=== PATIENT | male | born 1950 | race Caucasian/White ===

== ENCOUNTER 2018-09-06 10:56 | Emergency (ER) | payer MEDICARE, BC, SELFPAY ==
[2018-09-06 11:32] VITALS: BP 156/75; PULSE 51; RESP 16; TEMP 36.7; O2SAT 97
--- NOTE | 2018-09-06 12:15 | DI.COMBO_ITS ---
SYMPTOM/DIAGNOSIS: LEG PAIN, SWELLING, BRUISE LEFT LEG: Two views. No bone or joint abnormality is identified. The soft tissues are unremarkable. IMPRESSION: Negative examination. LEFT LOWER EXTREMITY ULTRASOUND: The deep veins of the left lower extremity show normal compression, augmentation and color flow. No evidence of a deep venous thrombus is identified. No focal fluid collections are seen. The visualized portions of the greater saphenous vein are patent. IMPRESSION: No evidence of a left lower extremity deep venous thrombus.
--- NOTE | 2018-09-06 13:55 | W.ED.GENAD ---
Discharge Plan Disposition Patient Disposition: HOME Condition: Stable Discharge Details Chief Complaint: Vascular Clinical Impression: Contusion of leg, left Primary Care Provider: Stevne Mejía ED Provider: Nahid Iyer Home Meds and New Rx's Prescriptions: Continue venlafaxine 37.5 MG capsule,extended release 24hr 37.5 mg PO DAILY RF: 0 atorvastatin 20 MG tablet 20 mg PO DAILY RF: 0 aspirin 325 MG tablet 325 mg PO DAILY RF: 0 metoprolol succinate 50 MG tablet extended release 24 hr 12.5 mg PO DAILY RF: 0 acetaminophen [Acetaminophen Extra Strength] 500 MG tablet 1,000 mg PO DAILY PRNRF: 0 lorazepam 0.5 MG tablet 0.5 mg PO DAILY PRNRF: 0 ibuprofen 200 mg Tablet 200 - 600 mg PO PRN PRNRF: 0 Discharge Instructions Instructions: Contusion in Adults (ED) Additional Instructions: Watch for any additional signs of bruising or abnormal bleeding and return immediately if these occur as you may need blood work for further assessment. Otherwise I feel that this is an occult injury and you can continue to use scmv-bqt-[id number] therapy and ice it. If not improving over the next 1-2 weeks feel free to follow-up with your primary care provider for reassessment as needed. Referrals: Steven Mejía MD [Primary Care Provider] - (As needed for reassessment) Discharge Data Discharge Date/Time-TO BE ENTERED AT DEPARTURE: 09/06/18 14:06 Medical Decision Making Patient presenting to the emergency department for chief complaint of left lower leg pain. Patient denies any injury or trauma but noticed approximately 5 days ago that his lower leg was hurting. He attempted to ice it as he initially thought this was musculoskeletal but symptoms have significantly worsened and he also started noticing some distal bruising to the area. Physical exam does show some distal posterior calf tenderness along with tenderness to palpation of the midshaft distal tibia with some swelling and ecchymosis and also some distal ecchymotic skin changes to the ankle. Otherwise patient is ambulatory, weightbearing, no other abnormalities noted. I feel that this is highly suspicious of occult injury with contusion given posterior calf tenderness and tenderness to bony prominence plan to check ultrasound for rule out of DVT and x-ray for evaluation of occult fracture. Patient denies need for any pain medication at this time. Review of ultrasound and plain film imaging is negative. Patient discharged with diagnosis of contusion and encouraged to continue to use ice and bhal-egk-nwlflgm pain medication as needed and to return for any new or worsening symptoms. After discussion of diagnosis and plan of care patient has no further needs, questions, or concerns and states clear understanding to return to the emergency department for any worsening symptoms HPI General Mode of arrival: ambulatory. Date/Time Provider Initiated Documentation: 09/06/18 11:09. Limitations to Documentation: no limitations. Information obtained by: patient and RN notes reviewed. History of Present Illness 67 year old M presents to the emergency department with the chief complaint of Left leg pain, described as moderate, with intensity rated at 6. Quality is described as aching, and is localized to the left and lower extremity. Patient reports no radiation. Patient started experiencing this day(s) (5) and it has been constant. No relieving factors improve symptom(s), Movement worsens symptoms . Patient notes no other symptoms.. Patient did receive the following treatments prior to arrival, NSAID and cold therapy Related Data Home Medications Medication Instructions Recorded Confirmed acetaminophen [Acetaminophen Extra 1,000 mg PO DAILY PRN 09/26/17 09/06/18 Strength] aspirin 325 mg PO DAILY 09/26/17 09/06/18 atorvastatin 20 mg PO DAILY 09/26/17 09/06/18 lorazepam 0.5 mg PO DAILY PRN 09/26/17 09/06/18 metoprolol succinate 12.5 mg PO DAILY 09/26/17 09/06/18 venlafaxine 37.5 mg PO DAILY 09/26/17 09/06/18 ibuprofen 200 - 600 mg PO PRN PRN 09/06/18 09/06/18 Allergies Allergy/AdvReac Type Severity Reaction Status Date / Time codeine Allergy Unverified 09/06/18 11:34 Penicillins Allergy Unverified 09/06/18 11:34 General Stated Complaint: Vascular KEIKO: 3 Review of Systems Constitutional Denies body ache(s), Denies chills and Denies fever(s) Cardiovascular Denies chest pain, Reports syncope and Denies dyspnea Respiratory Denies cough, Denies hemoptysis and Denies dyspnea Gastrointestinal Denies melena, Denies hematochezia and Denies change in stool character Integumentary/Breasts Denies rash and Denies unusual bruising Neurologic Denies confusion, Reports syncope and Denies sensory deficit Psychiatric Denies confusion Hematologic/Lymphatic Denies easy bleeding and Denies easy bruising PFSH Social History Smoking/Tobacco Use Status: Former Tobacco Use Exam Const General: cooperative, healthy appearing and no acute distress Orientation: alert, awake and oriented x3 Resp Effort & Inspection: normal respiratory effort and able to speak in complete sentences Cardio Rate: regular rate Rhythm: regular rhythm Extrem General: full ROM, normal capillary refill and normal exam except as noted Left lower extremity: lower leg Details: tenderness Location: of the posterior calf and of the midshaft tibia, localized swelling Location: of the distal lower leg and ecchymosis (Distal medial lower leg and ankle); no palpable cords, no pitting edema, no crepitus, no foreign bodies, no deformity and no unusual warmth Course Vital Signs Temperature 36.7 C 09/06/18 11:32 Pulse 51 L 09/06/18 11:32 Respiratory Rate 16 09/06/18 11:32 Blood Pressure 156/75 H 09/06/18 11:32 Pulse Oximetry 97 09/06/18 11:32 Temperature 36.7 C 09/06/18 11:32 Temperature Source Skin 09/06/18 11:32 Pulse 51 L 09/06/18 11:32 Respiratory Rate 16 09/06/18 11:32 Respiratory Effort Non-Labored 09/06/18 11:50 Blood Pressure 156/75 H 09/06/18 11:32 Blood Pressure Position Sitting 09/06/18 11:32 Pulse Oximetry 97 09/06/18 11:32 Oxygen Delivery Method Room Air 09/06/18 11:32 Oxygen Flow Rate 0 09/06/18 11:32 Pain Level 6 09/06/18 11:50
--- NOTE | 2018-09-06 13:58 | ED.GENADUL_ITS ---
Discharge Plan Disposition Patient Disposition: HOME Condition: Stable Discharge Details Chief Complaint: Vascular Clinical Impression: Contusion of leg, left Primary Care Provider: Steven Mejía ED Provider: Nahid Iyer Home Meds and New Rx's Prescriptions: Continue venlafaxine 37.5 MG capsule,extended release 24hr 37.5 mg PO DAILY RF: 0 atorvastatin 20 MG tablet 20 mg PO DAILY RF: 0 aspirin 325 MG tablet 325 mg PO DAILY RF: 0 metoprolol succinate 50 MG tablet extended release 24 hr 12.5 mg PO DAILY RF: 0 acetaminophen [Acetaminophen Extra Strength] 500 MG tablet 1,000 mg PO DAILY PRNRF: 0 lorazepam 0.5 MG tablet 0.5 mg PO DAILY PRNRF: 0 ibuprofen 200 mg Tablet 200 - 600 mg PO PRN PRNRF: 0 Discharge Instructions Instructions: Contusion in Adults (ED) Additional Instructions: Watch for any additional signs of bruising or abnormal bleeding and return immediately if these occur as you may need blood work for further assessment. Otherwise I feel that this is an occult injury and you can continue to use over- the-counter therapy and ice it. If not improving over the next 1-2 weeks feel free to follow-up with your primary care provider for reassessment as needed. Referrals: Steven Mejía MD [Primary Care Provider] - (As needed for reassessment) Discharge Data Discharge Date/Time-TO BE ENTERED AT DEPARTURE: 09/06/18 14:06 Medical Decision Making Patient presenting to the emergency department for chief complaint of left lower leg pain. Patient denies any injury or trauma but noticed approximately 5 days ago that his lower leg was hurting. He attempted to ice it as he initially thought this was musculoskeletal but symptoms have significantly worsened and he also started noticing some distal bruising to the area. Physical exam does show some distal posterior calf tenderness along with tenderness to palpation of the midshaft distal tibia with some swelling and ecchymosis and also some distal ecchymotic skin changes to the ankle. Otherwise patient is ambulatory, weightbearing, no other abnormalities noted. I feel that this is highly suspicious of occult injury with contusion given posterior calf tenderness and tenderness to bony prominence plan to check ultrasound for rule out of DVT and x-ray for evaluation of occult fracture. Patient denies need for any pain medication at this time. Review of ultrasound and plain film imaging is negative. Patient discharged with diagnosis of contusion and encouraged to continue to use ice and over-the- counter pain medication as needed and to return for any new or worsening symptoms. After discussion of diagnosis and plan of care patient has no further needs, questions, or concerns and states clear understanding to return to the emergency department for any worsening symptoms HPI General Mode of arrival: ambulatory . Date/Time Provider Initiated Documentation: 09/06/18 11:09 . Limitations to Documentation: no limitations . Information obtained by: patient and RN notes reviewed . History of Present Illness 67 year old M presents to the emergency department with the chief complaint of Left leg pain, described as moderate, with intensity rated at 6. Quality is described as aching, and is localized to the left and lower extremity. Patient reports no radiation. Patient started experiencing this day(s) (5) and it has been constant. No relieving factors improve symptom(s), Movement worsens symptoms . Patient notes no other symptoms.. Patient did receive the following treatments prior to arrival, NSAID and cold therapy Related Data Home Medications Medication Instructions Recorded Confirmed acetaminophen [Acetaminophen Extra 1,000 mg PO DAILY PRN 09/26/17 09/06/18 Strength] aspirin 325 mg PO DAILY 09/26/17 09/06/18 atorvastatin 20 mg PO DAILY 09/26/17 09/06/18 lorazepam 0.5 mg PO DAILY PRN 09/26/17 09/06/18 metoprolol succinate 12.5 mg PO DAILY 09/26/17 09/06/18 venlafaxine 37.5 mg PO DAILY 09/26/17 09/06/18 ibuprofen 200 - 600 mg PO PRN PRN 09/06/18 09/06/18 Allergies Allergy/AdvReac Type Severity Reaction Status Date / Time codeine Allergy Unverified 09/06/18 11:34 Penicillins Allergy Unverified 09/06/18 11:34 General Stated Complaint: Vascular KEIKO: 3 Review of Systems Constitutional Denies body ache(s), Denies chills and Denies fever(s) Cardiovascular Denies chest pain, Reports syncope and Denies dyspnea Respiratory Denies cough, Denies hemoptysis and Denies dyspnea Gastrointestinal Denies melena, Denies hematochezia and Denies change in stool character Integumentary/Breasts Denies rash and Denies unusual bruising Neurologic Denies confusion, Reports syncope and Denies sensory deficit Psychiatric Denies confusion Hematologic/Lymphatic Denies easy bleeding and Denies easy bruising PFSH Social History Smoking/Tobacco Use Status: Former Tobacco Use Exam Const General: cooperative, healthy appearing and no acute distress Orientation: alert, awake and oriented x3 Resp Effort & Inspection: normal respiratory effort and able to speak in complete sentences Cardio Rate: regular rate Rhythm: regular rhythm Extrem General: full ROM, normal capillary refill and normal exam except as noted Left lower extremity: lower leg Details: tenderness Location: of the posterior calf and of the midshaft tibia, localized swelling Location: of the distal lower leg and ecchymosis (Distal medial lower leg and ankle); no palpable cords , no pitting edema, no crepitus, no foreign bodies, no deformity and no unusual warmth Course Vital Signs Temperature 36.7 C 09/06/18 11:32 Pulse 51 L 09/06/18 11:32 Respiratory Rate 16 09/06/18 11:32 Blood Pressure 156/75 H 09/06/18 11:32 Pulse Oximetry 97 09/06/18 11:32 Temperature 36.7 C 09/06/18 11:32 Temperature Source Skin 09/06/18 11:32 Pulse 51 L 09/06/18 11:32 Respiratory Rate 16 09/06/18 11:32 Respiratory Effort Non-Labored 09/06/18 11:50 Blood Pressure 156/75 H 09/06/18 11:32 Blood Pressure Position Sitting 09/06/18 11:32 Pulse Oximetry 97 09/06/18 11:32 Oxygen Delivery Method Room Air 09/06/18 11:32 Oxygen Flow Rate 0 09/06/18 11:32 Pain Level 6 09/06/18 11:50
[2018-09-06 14:02] VITALS: BP 145/80; PULSE 54; RESP 16; O2SAT 97
[2018-09-06 14:06] VITALS: BP 145/80; PULSE 54; RESP 16; O2SAT 97
== END 2018-09-06 14:06 | disposition home or self-care (01) ==
PROVIDERS: Emergency Provider Nurse Practitioner Family; PCP Internal Medicine
DX: S80.12XA Contusion of left lower leg, initial encounter (principal); X58.XXXA Exposure to other specified factors, initial encounter
CPT/HCPCS: 99284; 73590; 93971; 99283

== ENCOUNTER 2020-05-04 15:13 | Outpatient (REF) | payer MEDICARE, BC, SELFPAY ==
[2020-05-04 21:40] LABS: Mean Corp. HGB Concentration 32.6 g/dL (32.0-36.0); Mean Corpuscular Hemoglobin 29.8 pg (27.0-33.0); Mean Corpuscular Volume 91.5 fL (80-95); Mean Platelet Volume 11.8 fL (8.0-11.0); Platelet Count 169 x1000/uL (130-400); RBC Distribution Width 14.2 % (11.8-14.1); White Blood Cell Count 6.36 k/cumm (4.4-10.8)
[2020-05-04 22:11] LABS: Anion Gap 8.5 mmol/L (3-11); BUN 16 mg/dL (7-18); CO2 26.5 mmol/L (21.0-32.0); CREATININE 0.82 mg/dL (0.70-1.30); Calculated LDL 108 mg/dL (<100); Chloride 106 mmol/L (98-107); Cholesterol 170 mg/dL (<200); Glucose 96 mg/dL (74-106); HDL Cholesterol 39 mg/dL (40-60); Potassium 4.8 mmol/L (3.5-5.1); Sodium 141 mmol/L (136-145); Triglyceride 115 mg/dL (<150)
[2020-05-04 22:56] LABS: Hemoglobin A1C 5.7 % (3.8-5.6)
== END 2020-05-04 15:33 ==
LOC: NCHCN 15:13
PROVIDERS: PCP Internal Medicine; Visit Provider Internal Medicine
DX: R73.09 Other abnormal glucose (principal); E66.9 Obesity, unspecified
CPT/HCPCS: 80048; 80061; 85027; 83036

== ENCOUNTER 2021-04-16 21:34 | Emergency (ER) | payer MEDICARE, BC, SELFPAY ==
[2021-04-16] VITALS (10 sets, daily range): BP systolic 121–155; BP diastolic 58–69; PULSE 67–84; RESP 16–20; TEMP 37.1; O2SAT 94–95
--- NOTE | 2021-04-16 22:00 | DI.CT_ITS ---
Exam(s) CT CAROTID NECK CTA EXAM: CT CAROTID NECK CTA CLINICAL HISTORY: hx artery reconstruction , left lateral neck pain,. TECHNIQUE: Imaging Protocol: Axial CT angiography was performed with multi-slice acquisition and mu lti-planar and/or 3D reconstructions. CONTRAST MATERIAL: Intravenous: Omnipaque 350 Contrast volume:structured data in ml COMPARISON: CT CHEST FOR PULMONARY EMBOLUS from 09/26/2017 FINDINGS: CTA NECK W: AORTIC ARCH ANATOMY: Conventional Anterior circulation: Both common carotid arteries ascend with normal luminal diameters. There is mild calcified plaque at the level the carotid bifurcations but without significant stenosis at these levels nor in the proximal internal carotid arteries. Both internal carotid arteries exhib it normal diameters in the neck and visualized skull base. Posterior circulation: Both vertebral arteries originated conventional fashion off of the subclavian arteries. There is no significant stenosis in the subclavian arteries proximal to the vertebral artery takeoff points. No obvious stenosis at the origin of the vertebral arteries off of the subclavian arteries. Both verteb ral arteries ascend with normal luminal diameters (approximately equal). There is no intraluminal th rombus nor dissection of the vertebral arteries evident. Both vertebral arteries contribute to the f ormation of the basilar artery at the skull base. IMPRESSION: 1. Minimal plaque at the carotid bifurcations. No hemodynamically significant stenosis. No dissect ion. 2. Both vertebral arteries are patent. No evidence of dissection. 3. RADIATION DOSE DELIVERED: 371.46mGy.cm Total DLP DATA REPOSITORY: All CT scans at this facility are submitted to the National Radiology Data Registry (NRDR) Dose Index Registry (DIR) with the [employer] ([employer]). RADIATION OPTIMIZATION: All CT scans at this facility use at least one of these dose optimization te chniques: automated exposure control; mA and/or kV adjustment per patient size (includes targeted exa ms where dose is matched to clinical indication); or iterative reconstruction.
[2021-04-16] MEDS: diazePAM 10 MG/2 ML SYR 2.5 MG IVP ×2 (22:33→23:01)
[2021-04-16] MEDS: ACETAMINOPHEN 1,000 MG/100 ML BTL 400 MG IVPB (22:33)
--- NOTE | 2021-04-16 22:36 | ED.GENADUL_ITS ---
Discharge Plan Disposition Patient Disposition: HOME Condition: Stable Discharge Details Clinical Impression: Acute torticollis Primary Care Provider: Steven Mejía ED Provider: Arin Villalpando Home Meds and New Rx's Prescriptions: New diazepam [Valium] 5 mg tablet 5 mg PO BID PRNQty: 7 RF: 0 No Action venlafaxine 37.5 MG capsule,extended release 24hr 37.5 mg PO DAILY RF: 0 atorvastatin 20 MG tablet 20 mg PO DAILY RF: 0 aspirin 325 MG tablet 325 mg PO DAILY RF: 0 acetaminophen [Acetaminophen Extra Strength] 500 MG tablet 1,000 mg PO DAILY PRNRF: 0 lorazepam 0.5 MG tablet 0.5 mg PO DAILY PRNRF: 0 ibuprofen 200 mg Tablet 200 - 600 mg PO PRN PRNRF: 0 losartan 25 mg tablet 25 mg PO DAILY AM RF: 0 Discharge Instructions Instructions: Spasmodic Torticollis (ED) Additional Instructions: Take ibuprofen as needed for discomfort, 400 mg every 8 hours with food You may take Tylenol 650 mg to 1 g every 6 hours as needed for pain, you may take the Valium for pain uncontrolled with Motrin and Tylenol Warm compresses Recheck with your primary care physician on Sunday, light stretching recommended Do not take baclofen and Valium within 8 hours of each other Please return with new or worsening complaints Medical Decision Making Patient will be supplied with a Valium prescription for home He will continue to take ibuprofen and apply warm compresses CTA reviewed without acute abnormality Given low threshold to return with new or worsening complaints Patient feels marked symptomatically improvement He will need recheck with his primary care physician on Sunday instructed return should he have new or worsening complaints, is discharged home in stable condition with stable vitals Differential Diagnosis Differential Diagnosis: Carotid artery dissection, torticollis, angina, meningitis Medical Records Medical records reviewed: Yes I reviewed the patient's medical records. Lab Data Lab results reviewed: Yes I reviewed the patient's lab results. HPI General Date/Time Provider Initiated Documentation: 04/16/21 21:58 . Limitations to Documentation: no limitations . Information obtained by: patient . HPI Narrative: This 70-year-old gentleman with history of carotid and aortic reconstruction, hypertension, hyperlipidemia presents with neck pain which started this morning when patient awoke. He states his neck felt stiff and by the time dinner arrived, he could not turn his head to the left. He states he never had symptoms similar to this in the past. He denies headache, dizziness, fever, chills. He denies any vision change. He denies any strength or sensation changes to extremities. He denies any speech change. Denies chest pain or shortness of breath. Denies any paresthesias to his extremities he otherwise feels well. He took a baclofen and and some ibuprofen without relief in his symptoms. The pain is exacerbated with movement predominantly. If he holds his head straight ahead, he does not have discomfort reportedly. He denies any whiplash injury. Related Data Home Medications Medication Instructions Recorded Confirmed acetaminophen [Acetaminophen Extra 1,000 mg PO DAILY PRN 09/26/17 09/06/18 Strength] aspirin 325 mg PO DAILY 09/26/17 04/16/21 atorvastatin 20 mg PO DAILY 09/26/17 04/16/21 lorazepam 0.5 mg PO DAILY PRN 09/26/17 04/16/21 venlafaxine 37.5 mg PO DAILY 09/26/17 04/16/21 ibuprofen 200 - 600 mg PO PRN PRN 09/06/18 04/16/21 diazepam [Valium] 5 mg PO BID PRN #7 tab 04/16/21 losartan 25 mg PO DAILY AM 04/16/21 04/16/21 Previous Rx's Medication Instructions Recorded diazepam [Valium] 5 mg PO BID PRN #7 tab 04/16/21 Allergies Allergy/AdvReac Type Severity Reaction Status Date / Time codeine Allergy Unverified 09/06/18 11:34 Penicillins Allergy Unverified 09/06/18 11:34 General Stated Complaint: GenMedical KEIKO: 3 Review of Systems Narrative: Review of systems obtained x7 aside from where indicated in [facility] Social History Smoking/Tobacco Use Status: Former Tobacco Use Smoking risk assessment performed?: Yes Drug use: Occasionally Do you feel safe in your relationship?: Yes Exam Const General: cooperative Orientation: alert and oriented x3 Eyes Pupils: PERRL Neck Other: Reproducible tenderness along SCM, no carotid bruit or pulsatile mass, no anterior neck wall tenderness, no midline posterior tenderness, Resp Effort & Inspection: normal respiratory effort Cardio Rate: regular rate Rhythm: regular rhythm Skin Other: No rashes or lesions Neuro General: patient alert and patient oriented x3 Cranial Nerves: CN's II-XI intact bilaterally Cognition: normal cognition Speech: speech normal Motor: strength 5/5 throughout Course Vital Signs Vital signs: Vital Signs Temperature 37.1 C 04/16/21 21:42 Pulse 80 04/16/21 21:42 Respiratory Rate 16 04/16/21 21:42 Blood Pressure 155/69 H 04/16/21 21:42 Pulse Oximetry 95 04/16/21 21:42 Temperature 37.1 C 04/16/21 21:42 Temperature Source Temporal Artery Scan 04/16/21 21:42 Pulse 80 04/16/21 21:42 Respiratory Rate 16 04/16/21 21:42 Respiratory Effort 04/16/21 21:58 Blood Pressure 155/69 H 04/16/21 21:42 Blood Pressure Position Sitting 04/16/21 21:42 Pulse Oximetry 95 04/16/21 21:42 Oxygen Delivery Method Room Air 04/16/21 21:42 Oxygen Flow Rate 0 04/16/21 21:42 Pain Level 10 04/16/21 21:42
[2021-04-16 22:39] LABS: Abs Immature Grans 0.03 10^3/uL (0.0-0.06); Absolute Basophil Count 0.05 10^3/uL (0.0-0.2); Absolute Eosinophil Count 0.37 10^3/uL (0.0-0.7); Absolute Monocyte Count 1.12 10^3/uL (0.1-0.8); Basophils % 0.5; Eosinophils % 3.6; HCT 42.3 % (40.0-50.0); HGB 13.6 g/dL (13.5-17.5); Immature Grans % 0.3; Lymphocytes % 11.6; MCH 29.8 pg (27.0-33.0); MCHC 32.2 % (32.0-36.0); MCV 92.6 fL (80-95); MPV 10.9 fL (8.0-11.0); Monocytes % 10.8; Neutrophils % 73.2; Nucleated RBC 0 %; Platelet Count 205 10^3/uL (130-400); RBC 4.57 10^6/uL (4.36-5.78); RDW 13.8 % (11.8-14.1); RDW-SD 46.6 fL; WBC 10.37 10^3/uL (4.4-10.8)
[2021-04-16 22:47] LABS: Anion Gap 7.3 mmol/L (3-11); BUN 25 mg/dL (7-18); CO2 29.7 mmol/L (21.0-32.0); Calcium 9.1 mg/dL (8.5-10.1); Chloride 106 mmol/L (98-107); Glucose 111 mg/dL (74-106); Sodium 143 mmol/L (136-145)
[2021-04-16] MEDS: Omnipaque 350 MG/ML 100 ML BTL IJ (23:07)
[2021-04-16] MEDS: Normal Saline - Diluent 50 ML VIAL IV (23:08)
--- NOTE | 2021-04-16 23:54 | DI.VRAD_ITS ---
PROCEDURE INFORMATION: Exam: CT Angiography Neck With Contrast Exam date and time: 04/16/2021 10:12 PM Age: 70 years old Clinical indication: Prior surgery; Patient HX: HX artery reconstruction; Left lateral neck pain TECHNIQUE: Imaging protocol: Computed tomography angiography of the neck with contrast. 3D rendering (Not supervised by radiologist): MIP and/or 3D reconstructed images were created by the technologist. Total images: 974 COMPARISON: CT CHEST FOR PULMONARY EMBOLUS 09/26/2017 4:22 PM FINDINGS: Right common carotid artery: No stenosis. No dissection or occlusion. Right internal carotid artery: Minimal calcification in the wall of the right carotid bulb. Mild atherosclerotic stenosis of the cavernous segment of the right ICA. Right external carotid artery: No occlusion or stenosis of the origin. Left common carotid artery: No stenosis. No dissection or occlusion. Left internal carotid artery: Minimal calcification in the wall the left carotid bulb. Mild to moderate atherosclerotic stenosis of the cavernous segment left ICA Left external carotid artery: No occlusion or stenosis of the origin. Right vertebral artery: No stenosis. No dissection or occlusion. Left vertebral artery: No stenosis. No dissection or occlusion. Soft tissues: No significant soft tissue swelling. Bones/joints: No acute fracture. IMPRESSION: No significant stenosis, occlusion or dissection. REFERENCES: NASCET CRITERIA. The degree of internal carotid artery stenosis is based on NASCET criteria. Normal is no stenosis. Mild is less than 50% stenosis. Moderate is 50-69% stenosis. Severe is 70% to 99% stenosis. Total occlusion is no detectable patent lumen. Dictated and Authenticated by: Micah Reardon MD. Ordering:NUNU Hinkle MD
[2021-04-17] VITALS: PULSE 67; RESP 16; O2SAT 95
[2021-04-17 00:01] VITALS: BP 129/45; PULSE 69; PULSE 73; RESP 12; O2SAT 95
[2021-04-17] MEDS: Ketorolac 15 MG/ML VIAL IVP (00:05)
[2021-04-17 00:10] VITALS: PULSE 69; RESP 15; O2SAT 96
[2021-04-17 00:16] VITALS: BP 131/58; PULSE 65; PULSE 69; RESP 17; O2SAT 95
[2021-04-17 00:20] VITALS: PULSE 69; RESP 18; O2SAT 95
--- NOTE | 2021-04-17 09:16 | NUR.NOTE ---
script not escribed. called in rx of valium 5 mg bid prn 7 tablets no refills.via message system at [facility]
== END 2021-04-17 00:40 | disposition home or self-care (01) ==
PROVIDERS: Emergency Provider Physician Assistant; PCP Internal Medicine
DX: M43.6 Torticollis (principal)
CPT/HCPCS: 70498; 80048; 96374; 96375; 99285; 85025; 99283; J0131; J1885; J3360; J3490

== ENCOUNTER 2021-11-16 10:23 | Outpatient (REF) | payer MEDICARE, BC, SELFPAY ==
[2021-11-16 15:43] LABS: Calculated LDL 83 mg/dL (<100); Cholesterol 139 mg/dL (<200); HDL Cholesterol 41 mg/dL (40-60); Triglyceride 78 mg/dL (<150)
[2021-11-16 16:00] LABS: Hemoglobin A1C 5.6 % (<5.7)
== END 2021-11-16 10:24 | disposition home or self-care (01) ==
LOC: NCHCN 10:23
PROVIDERS: PCP Internal Medicine; Visit Provider Internal Medicine
DX: R73.03 Prediabetes (principal); Z13.220 Encounter for screening for lipoid disorders
CPT/HCPCS: 80061; 83036

== ENCOUNTER → 2022-04-07 00:21 | Outpatient (CLI) | payer MEDICARE, BC, SELFPAY ==
--- NOTE | 2022-04-07 09:19 | DI.RAD_ITS ---
Exam(s) XR CERVICAL SPINE COMP 4-5V EXAM: XR CERVICAL SPINE COMP 4-5V CLINICAL HISTORY: RT CERVICAL RADICULOPATHY,M54.12. TECHNIQUE: 2D digital imaging was performed. Eight images were obtained. AP, odontoid, lateral and b ilateral oblique images were obtained. COMPARISON: CT CT CAROTID NECK CTA from 04/16/2021 FINDINGS: The odontoid is intact. The lateral masses are well aligned. There is mild reversal of the normal ce rvical lordosis centered at C5-6. There is disc space narrowing at C5-6 and C6-C7. Endplate osteophy noe RC from C4-5 through C7-T1. Hypertrophic changes of the facets are seen at multiple levels, but most marked at the C2-3 and C3-C4 levels. No acute fracture or subluxation is present. Neural forami nal narrowing is seen bilaterally throughout the cervical spine. The cervical thoracic junction is w ell maintained. The prevertebral soft tissues are unremarkable. Lung apices are clear. Sternal wire s are in place. IMPRESSION: Moderate degenerative changes in the cervical spine. DATA REPOSITORY: RADIATION DOSE DELIVERED:
== END ==
PROVIDERS: PCP Internal Medicine; Visit Provider Internal Medicine
DX: M47.812 Spondylosis without myelopathy or radiculopathy, cervical region (principal)
CPT/HCPCS: 72050

== ENCOUNTER 2022-05-28 11:51 | Emergency (ER) | payer MEDICARE, BC, SELFPAY ==
[2022-05-28 12:26] VITALS: BP 157/67; PULSE 78; RESP 18; TEMP 36.7; O2SAT 96
--- NOTE | 2022-05-28 12:29 | ED.GENADUL_ITS ---
Discharge Plan Disposition Patient Disposition: HOME Condition: Stable Discharge Details Clinical Impression: Acute chemical conjunctivitis of left eye Primary Care Provider: Steven Mejía ED Provider: Alexy Yanez Home Meds and New Rx's Prescriptions: Continued venlafaxine 37.5 MG capsule,extended release 24hr 37.5 mg PO DAILY atorvastatin 20 MG tablet 20 mg PO DAILY aspirin 325 MG tablet 325 mg PO DAILY lorazepam 0.5 MG tablet 0.5 mg PO DAILY PRN ibuprofen 200 mg Tablet 200 - 600 mg PO PRN PRN mirtazapine 15 mg tablet 7.5 tab PO HS Label Comments: TAKE ONE-HALF TABLET BY MOUTH AT BEDTIME FOR 1 WEEK; THEN INCREASE TO ONE TABLET AT BEDTIME metoprolol tartrate 25 mg tablet 25 mg PO DAILY AM No Action acetaminophen [Acetaminophen Extra Strength] 500 MG tablet 1,000 mg PO DAILY PRN Discharge Instructions Instructions: Chemical Eye [facility] (ED) Additional Instructions: Please follow-up with your healthcare management consultant tomorrow. Call them and let them know about injury today and treatment here in the emergency department. Return to the ER immediately for any worsening or new concerning symptoms. Referrals: Steven Mejía MD [Primary Care Provider] - Medical Decision Making 71-year-old male here with left eye pain and inflammation after accidentally exposing it to PVC primer. His left conjunctive is inflamed. Initial pH on arrival 8. I called [facility] discussed ED presentation course. They recommend sterile saline aeration for 15 minutes then routine care. Patient was irrigated with copious sterile saline. pH retested and now 7. Pa tient notes pain resolved. Tetracaine was applied as anesthetic to the eye. Cornea was examined with fluorescein staining under Krause lamp and no corneal injury noted. Usual customary discharge instructions reviewed with the patient. HPI General Mode of arrival: ambulatory . Date/Time Provider Initiated Documentation: 05/28/22 11:56 . Limitations to Documentation: no limitations . Information obtained by: patient . HPI Narrative: 71-year-old male with history of macular degeneration of his left eye, presents with chief complaint of left eye pain. Patient notes he was working at home and accidentally got PVC primer in his eye. He immediately experienced discomfort which has persisted since this occurred just prior to arrival. Pain is moderate to severe. No modifiers. No associated visual changes. No other injury. Related Data Home Medications Medication Instructions Recorded Confirmed acetaminophen 500 mg tablet 1,000 mg PO DAILY PRN 09/26/17 09/06/18 (Acetaminophen Extra Strength) aspirin 325 mg tablet 325 mg PO DAILY 09/26/17 05/28/22 atorvastatin 20 mg tablet 20 mg PO DAILY 09/26/17 05/28/22 lorazepam 0.5 mg tablet 0.5 mg PO DAILY PRN 09/26/17 05/28/22 venlafaxine 37.5 mg 37.5 mg PO DAILY 09/26/17 05/28/22 capsule,extended release 24 hr ibuprofen 200 mg tablet 200 - 600 mg PO PRN PRN 09/06/18 05/28/22 metoprolol tartrate 25 mg tablet 25 mg PO DAILY AM 05/28/22 05/28/22 mirtazapine 15 mg tablet 7.5 tab PO HS 05/28/22 05/28/22 Allergies Allergy/AdvReac Type Severity Reaction Status Date / Time codeine Allergy Unverified 05/28/22 12:13 Penicillins Allergy Unverified 05/28/22 12:13 General Stated Complaint: EyeProblem KEIKO: 2 Review of Systems Eyes Eyes: Reports as per HPI Cardiovascular Cardiovascular: Denies dyspnea Respiratory Respiratory: Denies dyspnea PFSH All Active Problems (Updated 05/28/22 @ 12:49 by Alexy Yanez MD) Acute torticollis (Acute) Acute chemical conjunctivitis of left eye (Acute) Social History Smoking/Tobacco Use Status: Former Tobacco Use Smoking risk assessment performed?: Yes Alcohol Intake: current Alcohol Intake frequency: holidays/special occasions only Drug use: Occasionally Do you feel safe at home: Yes Do you feel safe in your relationship?: Yes Exam Const General: uncomfortable Orientation: alert and awake Eyes Visual Green: normal visual green by confrontation Alignment and Position: alignment normal Periorbital: periorbital findings normal Eyelids: eyelids normal Conjunctivae: conjunctival abnormality left conjunctival injection Pupils: PERRL EOM: EOM intact bilaterally Course Vital Signs Vital signs: Vital Signs Temperature 36.7 C 05/28/22 12:26 Pulse 78 05/28/22 12:26 Respiratory Rate 18 05/28/22 12:26 Blood Pressure 157/67 H 05/28/22 12:26 Pulse Oximetry 96 05/28/22 12:26 Temperature 36.7 C 05/28/22 12:26 Temperature Source Temporal Artery Scan 05/28/22 12:26 Pulse 78 05/28/22 12:26 Respiratory Rate 18 05/28/22 12:26 Respiratory Effort 05/28/22 12:17 Blood Pressure 157/67 H 05/28/22 12:26 Pulse Oximetry 96 05/28/22 12:26 Oxygen Delivery Method Room Air 05/28/22 12:26 Oxygen Flow Rate 0 05/28/22 12:26
== END 2022-05-28 12:57 | disposition home or self-care (01) ==
PROVIDERS: Emergency Provider Student in an Organized Health Care Education/Training Program; PCP Internal Medicine
DX: H10.212 Acute toxic conjunctivitis, left eye (principal); T15.82XA Foreign body in other and multiple parts of external eye, left eye, initial encounter; X58.XXXA Exposure to other specified factors, initial encounter
CPT/HCPCS: 99283

== ENCOUNTER 2022-06-27 09:35 | Emergency (ER) | payer MEDICARE, BC, SELFPAY ==
[2022-06-27 09:46] VITALS: BP 151/67; PULSE 54; RESP 18; TEMP 36.8; O2SAT 97
--- NOTE | 2022-06-27 10:00 | DI.RAD_ITS ---
Exam(s) XR TOE LT GREAT EXAM: XR TOE LT GREAT CLINICAL HISTORY: distal trauma TECHNIQUE: COMPARISON: No exams were available for comparison FINDINGS: Three views were obtained. The there is reportedly history of trauma. There is an apparent mildly d isplaced mildly comminuted fracture of the tuft of the distal phalanx of the great toe. No additiona l fracture seen. IMPRESSION: RADIATION DOSE DELIVERED: Total DLP
--- NOTE | 2022-06-27 11:04 | ED.GENADUL_ITS ---
Discharge Plan Disposition Patient Disposition: HOME Condition: Improving Discharge Details Clinical Impression: Fracture of left great toe Primary Care Provider: Steven Mejía ED Provider: Nahid Iyer Home Meds and New Rx's Prescriptions: No Action venlafaxine 37.5 MG capsule,extended release 24hr 37.5 mg PO DAILY atorvastatin 20 MG tablet 20 mg PO DAILY aspirin 325 MG tablet 325 mg PO DAILY acetaminophen [Acetaminophen Extra Strength] 500 MG tablet 1,000 mg PO DAILY PRN lorazepam 0.5 MG tablet 0.5 mg PO DAILY PRN ibuprofen 200 mg Tablet 200 - 600 mg PO PRN PRN mirtazapine 15 mg tablet 7.5 tab PO HS Label Comments: TAKE ONE-HALF TABLET BY MOUTH AT BEDTIME FOR 1 WEEK; THEN INCREASE TO ONE TABLET AT BEDTIME metoprolol tartrate 25 mg tablet 25 mg PO DAILY AM Discharge Instructions Instructions: Toe Fracture (ED) Additional Instructions: Continue to take [id number] pain medication as needed for discomfort and we will place you on a follow-up with [facility]. Please contact them for arrangement of your follow-up appointment but give them a couple days before calling the office to ensure that they have referral. Referrals: [facility] [Provider Group] Discharge Data Discharge Date/Time-TO BE ENTERED AT DEPARTURE: 06/27/22 11:23 Medical Decision Making 4 days prior to arrival patient dropped a sheet of drywall on the left great toe. Since then he has noted significant pain and discomfort with increased bruising and swelling. Patient denies any other injury or trauma. Distal left great toe has significant tenderness and ecchymosis. We will sign for radiological imaging for evaluation of acute fracture and plan on nail trephination after imaging. Review of radiological imaging shows acute tuft fracture otherwise unremarkable. Trephination was performed and patient tolerated procedure well. Patient referred to podiatry and will take [id number] pain medication as needed for further discomfort. Patient placed in a postop hard soled shoe for fracture. After discussion of diagnosis and plan of care patient has no further needs, questions, or concerns and states clear understanding to return to the emergency department for any worsening symptoms. This documentation was generated using [employer] system, please disregard any oddities of phrase or misspellings. HPI General Mode of arrival: ambulatory . Date/Time Provider Initiated Documentation: 06/27/22 09:54 . Limitations to Documentation: no limitations . Information obtained by: patient . History of Present Illness 71 year old M presents to the emergency department with the chief complaint of left great toe injury, described as moderate, Quality is described as aching and sharp, and is localized to the lower extremity. Patient reports no radiation. Patient started experiencing this day(s) (4) and it has been constant. Immobilization improves symptom(s), Movement worsens symptoms . Patient n otes no other symptoms.. Patient did receive the following treatments prior to arrival, none Related Data Home Medications Medication Instructions Recorded Confirmed acetaminophen 500 mg tablet 1,000 mg PO DAILY PRN 09/26/17 06/27/22 (Acetaminophen Extra Strength) aspirin 325 mg tablet 325 mg PO DAILY 09/26/17 06/27/22 atorvastatin 20 mg tablet 20 mg PO DAILY 09/26/17 06/27/22 lorazepam 0.5 mg tablet 0.5 mg PO DAILY PRN 09/26/17 06/27/22 venlafaxine 37.5 mg 37.5 mg PO DAILY 09/26/17 06/27/22 capsule,extended release 24 hr ibuprofen 200 mg tablet 200 - 600 mg PO PRN PRN 09/06/18 06/27/22 metoprolol tartrate 25 mg tablet 25 mg PO DAILY AM 05/28/22 06/27/22 mirtazapine 15 mg tablet 7.5 tab PO HS 05/28/22 06/27/22 Allergies Allergy/AdvReac Type Severity Reaction Status Date / Time codeine Allergy Unverified 06/27/22 09:48 Penicillins Allergy Unverified 06/27/22 09:48 General Stated Complaint: Orthopedic KEIKO: 4 Review of Systems Narrative: 6 systems reviewed and unremarkable except what is marked below. Musculoskeletal Musculoskeletal: Reports as per HPI, Reports arthralgias, Reports joint swelling, Denies numbness and Denies tingling Integumentary/Breasts Skin/Breast: Reports unusual bruising Neurologic Neurologic: Denies numbness and Denies tingling PFSH All Active Problems (Updated 06/28/22 @ 00:08 by SIMBA ALDRIDGE) Acute torticollis (Acute) Fracture of left great toe (Acute) Social History Smoking/Tobacco Use Status: Former Tobacco Use Smoking risk assessment performed?: Yes Alcohol Intake: current Alcohol Intake frequency: holidays/special occasions only Drug use: Occasionally Substance use type: marijuana Do you feel safe at home: Yes Do you feel safe in your relationship?: Yes Exam Const General: cooperative, no acute distress and not ill appearing Orientation: alert, awake and oriented x3 Resp Effort & Inspection: normal respiratory effort, able to speak in complete sentences and no respiratory distress Cardio Rate: regular rate Rhythm: regular rhythm Pulses: normal peripheral pulses Skin General skin exam: no rashes or lesions noted Neuro General: patient alert, patient awake, patient oriented x3, moves all extremities and no focal motor deficits Sensory Exam: no sensory deficits noted Extrem General: normal exam except as noted Left lower extremity: foot Details: normal capillary refill, abnormal to inspection Details: joint swelling (Left distal great toe), tenderness Location: of the great toe Location: at the proximal phalanx and at the distal phalanx, toes with normal ROM, edema Location: of the great toe, ecchymosis dorsal great toe Details: single and motor-sensory exam Details: light-touch normal Course Vital Signs Vital signs: Vital Signs Temperature 36.8 C 06/27/22 09:46 Pulse 54 L 06/27/22 09:46 Respiratory Rate 18 06/27/22 09:46 Blood Pressure 151/67 H 06/27/22 09:46 Pulse Oximetry 97 06/27/22 09:46 Temperature 36.8 C 06/27/22 09:46 Pulse 54 L 06/27/22 09:46 Respiratory Rate 18 06/27/22 09:46 Respiratory Effort 06/27/22 09:49 Blood Pressure 151/67 H 06/27/22 09:46 Blood Pressure Position Sitting 06/27/22 09:46 Pulse Oximetry 97 06/27/22 09:46 Oxygen Delivery Method Room Air 06/27/22 09:46 Oxygen Flow Rate 0 06/27/22 09:46 Pain Level 5 06/27/22 09:50 Procedures Nail Trephination Time out: Yes Location (toes): left (Great toe) Sterile prep: chlorhexidine Method of drainage: nail cautery Procedure successful: Yes Patient tolerated procedure: well and no complications PAWSS Have you Been Recently Intoxicated or Drunk Within the Last 30 days?: Yes Have you Ever Experienced Previous Episodes of Alcohol Withdrawal?: No Have you ever Experienced Withdrawal Seizures?: No Have you ever Experienced Delirium Tremens(DT)s?: No Have you ever undergone Alcohol Rehabilitation Treatment (i.e, inpt ot outpatient treatment programs)?: No Have you ever Experienced Blackouts?: No Have you ever Combined Alcohol with other Downers within the last 90 days?: No Have you ever Combined Alcohol with any other Substance of Abuse during the last 90 days?: No Positive Blood Alcohol level on Presentation? [PCS.BAL]: No Evidence of Increased Autonomic Activity (i.e. HR>120, tremor, sweating, agitation, nausea)?: No Result: 1
--- NOTE | 2022-06-27 11:52 | NUR.NOTE ---
Nursing Note: Referral given to Care Managment to [facility] for tuft fx w/nail hematoma in 1 to 2 weeks.
--- NOTE | 2022-06-28 10:54 | CMACTNOTE_ITS ---
- If Service Date Differs Date of service: 06/28/22 Time of Service: 10:54 Care Management Activity Note Quan is seen in the ED for a fracture of his left great toe. At the request of ED provider, ADELAIDA coordinates a referral to [facility] to assist Quan in obtaining a follow up appointment with a newspaper copy editor for further evaluation and treatment. He has Medicare for insurance.
== END 2022-06-27 11:23 | disposition home or self-care (01) ==
PROVIDERS: Emergency Provider Nurse Practitioner Family; PCP Internal Medicine
DX: S92.422A Displaced fracture of distal phalanx of left great toe, initial encounter for closed fracture (principal); Z87.891 Personal history of nicotine dependence; W20.8XXA Other cause of strike by thrown, projected or falling object, initial encounter
CPT/HCPCS: 11740; 99283; 73660; 99284

== ENCOUNTER 2022-10-09 13:16 | Outpatient (REF) | payer MEDICARE, BC, SELFPAY ==
[2022-10-09 14:50] LABS: Hemoglobin A1C 5.7 % (<5.7)
[2022-10-09 14:53] LABS: Anion Gap 4.5 mmol/L (3-11); BUN 20 mg/dL (7-18); CO2 32.5 mmol/L (21.0-32.0); CREATININE 0.9 mg/dL (0.70-1.30); Calcium 9.4 mg/dL (8.5-10.1); Chloride 104 mmol/L (98-107); Estimated GFR 91.88 (mL/min/1.73m2); Glucose 101 mg/dL (74-106); Potassium 4.9 mmol/L (3.5-5.1); Sodium 141 mmol/L (136-145)
[2022-10-09 23:16] LABS: PSA, Screening 0.6 ng/mL (<=6.5)
== END 2022-10-09 13:17 | disposition home or self-care (01) ==
LOC: NCHCN 13:16
PROVIDERS: PCP Internal Medicine; Visit Provider Internal Medicine
DX: R73.03 Prediabetes (principal); R39.15 Urgency of urination; F43.0 Acute stress reaction; I49.3 Ventricular premature depolarization; Z12.5 Encounter for screening for malignant neoplasm of prostate
CPT/HCPCS: 80048; 84153; 83036

== ENCOUNTER → 2023-10-03 07:51 | Outpatient (BNVA) | payer MEDICARE, BC, SELFPAY | PROVIDERS: PCP Internal Medicine; Referring Provider Internal Medicine; Visit Provider Surgery | DX: L05.91 Pilonidal cyst without abscess (principal) | CPT/HCPCS: 99213 ==

== ENCOUNTER 2023-10-25 19:46 | Outpatient (REF) | payer MEDICARE, BC, SELFPAY ==
[2023-10-25 17:33] LABS: Anion Gap 7.4 mmol/L (3-11); BUN 18 mg/dL (7-18); CO2 28.6 mmol/L (21.0-32.0); CREATININE 0.9 mg/dL (0.70-1.30); Calculated LDL 89 mg/dL (<100); Chloride 106 mmol/L (98-107); Cholesterol 187 mg/dL (<200); Estimated GFR 90.74 (mL/min/1.73m2); Glucose 103 mg/dL (74-106); HDL Cholesterol 52 mg/dL (40-60); Potassium 4.8 mmol/L (3.5-5.1); Sodium 142 mmol/L (136-145); Triglyceride 230 mg/dL (<150)
[2023-10-25 17:49] LABS: Hemoglobin A1C 5.8 % (<5.7)
== END 2023-10-25 19:47 | disposition home or self-care (01) ==
LOC: NCHCN 19:46
PROVIDERS: PCP Internal Medicine; Visit Provider Internal Medicine
DX: I69.922 Dysarthria following unspecified cerebrovascular disease (principal); R73.03 Prediabetes
CPT/HCPCS: 80048; 80061; 83036

== ENCOUNTER 2023-12-10 11:33 | Emergency (ER) | payer MEDICARE, BC, SELFPAY ==
[2023-12-10 11:39] VITALS: BP 132/79; PULSE 63; RESP 21; TEMP 36.9; O2SAT 93
--- NOTE | 2023-12-10 12:52 | ED.GENADUL_ITS ---
HPI General Mode of arrival: ambulatory . Date/Time Provider Initiated Documentation: 12/10/23 12:18 . Limitations to Documentation: no limitations . Information obtained by: patient, RN notes reviewed and old records reviewed . HPI Narrative: 73-year-old male presents to the ER with a chief complaint of sore throat. Some cervical lymphadenopathy. He reports that he wakes up with severe sore throat unable to get in with his PCP. At home he did have a false positive COVID test per patient report. Mild cough fever chills bilateral ill ear pain. He denies any productive cough. Denies any chest pain, reports fever of 102 Tmax has been taking Tylenol for fever. Denies any hemoptysis. Past medical history includes TIA AAA, prediabetes, PTSD, ventricular premature beats, depression obesity does have a prosthetic heart valve. Related Data Home Medications Medication Instructions Recorded Confirmed acetaminophen 500 mg tablet 1,000 mg PO DAILY PRN 09/26/17 12/10/23 (Acetaminophen Extra Strength) aspirin 325 mg tablet 325 mg PO DAILY 09/26/17 12/10/23 lorazepam 0.5 mg tablet 0.5 mg PO DAILY PRN 09/26/17 12/10/23 venlafaxine 37.5 mg 37.5 mg PO DAILY 09/26/17 12/10/23 capsule,extended release 24 hr ibuprofen 200 mg tablet 200 - 600 mg PO PRN PRN 09/06/18 12/10/23 metoprolol tartrate 25 mg tablet 25 mg PO DAILY AM 05/28/22 12/10/23 mirtazapine 15 mg tablet 7.5 tab PO HS 05/28/22 12/10/23 atorvastatin 40 mg tablet 40 mg PO QHS 09/18/23 12/10/23 molnupiravir 200 mg capsule (EUA) 800 mg (4 x 200 mg) PO Q12H Covid 12/10/23 5 days #40 caps Previous Rx's Medication Instructions Recorded molnupiravir 200 mg capsule (EUA) 800 mg (4 x 200 mg) PO Q12H Covid 12/10/23 5 days #40 caps Allergies Allergy/AdvReac Type Severity Reaction Status Date / Time buspirone [From BuSpar] Allergy Mild Other (See Verified 11/20/23 12:27 Comment) sertraline [From Zoloft] Allergy Mild Other (See Verified 11/20/23 12:27 Comment) varenicline [From Chantix] Allergy Mild Other (See Verified 11/20/23 12:27 Comment) codeine Allergy Unverified 10/03/23 07:59 Penicillins Allergy Unverified 10/03/23 07:59 General Stated Complaint: RespSymp KEIKO: 3 Review of Systems All systems reviewed & are unremarkable except as noted in HPI and below ENT Ears, Nose, Mouth, and Throat: Reports as per HPI, Reports otalgia and Reports sore throat Cardiovascular Cardiovascular: Denies chest pain and Denies dyspnea Respiratory Respiratory: Denies chest congestion, Reports cough, Denies hemoptysis, Denies excessive phlegm production and Denies dyspnea Exam HENMT Head: normal to inspection Ears: hearing grossly normal bilaterally and TM's normal bilaterally General nose exam: external nose normal and nares normal Face and sinus: normal facial exam Mouth: oral mucosae normal, lip normal, tongue normal and moist mucous membranes Teeth and gingiva: dentition normal Throat: posterior oropharynx abnormal erythema; no exudates, uvula not displaced and uvular edema Course Vital Signs Vital signs: Vital Signs Temperature 36.9 C 12/10/23 11:39 Pulse 63 12/10/23 11:39 Respiratory Rate 21 12/10/23 11:39 Blood Pressure 132/79 12/10/23 11:39 Pulse Oximetry 93 12/10/23 11:39 Temperature 36.9 C 12/10/23 11:39 Temperature Source Temporal Artery Scan 12/10/23 11:39 Pulse 63 12/10/23 11:39 Respiratory Rate 21 12/10/23 11:39 Blood Pressure 132/79 12/10/23 11:39 Blood Pressure Position Sitting 12/10/23 11:39 Pulse Oximetry 93 12/10/23 11:39 Oxygen Delivery Method Room Air 12/10/23 11:39 Oxygen Flow Rate 0 12/10/23 11:39 Pain Level 7 12/10/23 11:39 Lab/Test Results Lab/Test Results: 12/10/23 11:38 Tonsil - Not Specified Group A Streptococcus Culture - Pending POC Strep Test-OSCAR(Rapid) Start: 12/10/23 11:42 Freq: .Rapid Strep Test Status: Active Protocol: Document 12/10/23 11:47 PS (Rec: 02/12/24 11:47 PS [id number]) Strep test-OSCAR(Rapid)-POC POC-Strep test-OSCAR (Rapid) Negative POC-Strep test-OSCAR (Rapid) Negative Medical Decision Making 73-year-old male presents to the ER with a chief complaint of sore throat. Some cervical lymphadenopathy. He reports that he wakes up with severe sore throat unable to get in with his PCP. At home he did have a false positive COVID test per patient report. Mild cough fever chills bilateral ill ear pain. He denies any productive cough. Denies any chest pain, reports fever of 102 Tmax has been taking Tylenol for fever. Denies any hemoptysis. Past medical history includes TIA AAA, prediabetes, PTSD, ventricular premature beats, depression obesity does have a prosthetic heart valve. Rapid strep negative, sent for culture. No evidence of exudate, Fluvid swab ordered and sent. Dexamethasone 10 mg p.o. ordered, Maalox lidocaine. Discussed home care salt water gargles with patient who verbalized understanding. He reports occasional alcohol denies being a smoker. Also uses marijuana. Positive Covid, Will prescribe Mulnupiravir and instruct on Home care and quarentine. Patient given Molnupiravir here in Department as it is unavailable at pharmacy. This text was generated using [employer] dictation system, please disregard any oddities of phrase or misspellings. Lab Data Lab results reviewed: Yes I reviewed the patient's lab results. 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 Lichen sclerosus Right Achilles tendinitis Panic disorder History of transient ischemic attack Prediabetes Tremor Ventricular premature complex Bilateral tinnitus Hemiplegia PTSD (post-traumatic stress disorder) Acute stress disorder Nicotine dependence Erectile dysfunction Major depression, single episode Obesity Surgical History H/O prosthetic heart valve Social History Smoking/Tobacco Use Status: Former Tobacco Use Smoking risk assessment performed?: Yes Alcohol Intake: current Alcohol Intake frequency: holidays/special occasions only Drug use: Occasionally Substance use type: marijuana Do you feel safe at home: Yes Do you feel safe in your relationship?: Yes Discharge Plan Disposition Patient Disposition: Home Condition: Stable Discharge Details Clinical Impression: COVID Primary Care Provider: Steven Mejía ED Provider: Katie Porter Home Meds and New Rx's Prescriptions: New molnupiravir 200 mg capsule 800 mg PO Q12H 5 Days Qty: 40 0RF Rx Instructions: Please take 4 capsules by mouth twice daily for the next 5 days Continued atorvastatin 40 mg tablet 40 mg PO QHS venlafaxine 37.5 MG capsule,extended release 24hr 37.5 mg PO DAILY aspirin 325 MG tablet 325 mg PO DAILY acetaminophen [Acetaminophen Extra Strength] 500 MG tablet 1,000 mg PO DAILY PRN lorazepam 0.5 MG tablet 0.5 mg PO DAILY PRN ibuprofen 200 mg Tablet 200 - 600 mg PO PRN PRN mirtazapine 15 mg tablet 7.5 tab PO HS Patient Comments: TAKE ONE-HALF TABLET BY MOUTH AT BEDTIME FOR 1 WEEK; THEN INCREASE TO ONE TABLET AT BEDTIME metoprolol tartrate 25 mg tablet 25 mg PO DAILY AM Discharge Instructions Instructions: COVID-19 (Coronavirus Disease 2019) (ED) Additional Instructions: You are positive for COVID. Please continue to wear a mask and quarantine as per CDC guidelines for the next 5 days. You may return to activities without a mask after you are symptomatic free further 24 hours. Please take the antiviral twice daily as prescribed. Follow-up with your PCP in the next 7 to 10 days. Follow up with primary care provider in 10 days. Return to ED sooner if any worsening chest pain cough shortness of breath, consider purchasing a pulse oximeter [id number] to monitor your oxygenation. Or concerns. Increase oral fluids. You may take an [id number] multivitamin such as vitamin with zinc, vitamin D and vitamin C. Referrals: Steven Mejía MD [Primary Care Provider] - 1 week
[2023-12-10 13:02] LABS: Influenza A PCR Negative (Negative); Influenza B PCR Negative (Negative); RSV PCR Negative (Negative)
[2023-12-10 13:05] LABS: COVID-19 PCR Positive (Negative); Source Nasopharynx
[2023-12-10] MEDS: Dexamethasone 10 MG/ML VIAL PO (13:08)
== END 2023-12-10 13:54 | disposition home or self-care (01) ==
PROVIDERS: Emergency Provider Registered Nurse Emergency; PCP Internal Medicine
DX: U07.1 COVID-19 (principal); Z86.73 Personal history of transient ischemic attack (TIA), and cerebral infarction without residual deficits; Z95.2 Presence of prosthetic heart valve; Z11.52 Encounter for screening for COVID-19; Z79.82 Long term (current) use of aspirin; Z87.891 Personal history of nicotine dependence
CPT/HCPCS: 87637; 87880; 99283; 87081; J1100

== ENCOUNTER → 2024-03-12 09:54 | Outpatient (BNVA) | payer MEDICARE, BC, SELFPAY | PROVIDERS: PCP Internal Medicine; Referring Provider Internal Medicine; Visit Provider Nurse Practitioner Adult Health | DX: R29.898 Other symptoms and signs involving the musculoskeletal system (principal); M54.2 Cervicalgia; R20.2 Paresthesia of skin | CPT/HCPCS: 95886; 95908; 99215 ==

== ENCOUNTER → 2024-04-01 09:43 | Outpatient (CLI) | payer MEDICARE, BC, SELFPAY ==
--- NOTE | 2024-04-01 09:45 | DI.MRI_ITS ---
Exam(s) MR CERVICAL SPINE WO EXAM: MR CERVICAL SPINE WO CLINICAL HISTORY: ? cervical radiculopathy, LT HAND WEAKNESS, NECK PAIN LT SIDE, LEFT HAND TECHNIQUE: Multiplanar multisequence MRI of the cervical spine was performed without intravenous con trast. COMPARISON: CR XR CERVICAL SPINE COMP 4-5V from 04/07/2022 FINDINGS: CERVICOMEDULLARY JUNCTION: Intact with no evidence of cerebellar tonsillar ectopia. No obvious abnor mality of the odontoid process. No evidence of Chiari 1 malformation. CERVICAL SPINAL CORD: There is no abnormal signal in the cervical spinal cord and no evidence of foca l cord atrophy nor focal cord swelling. OSSEOUS:There are no cervical fractures evident. No significant osseous lesions in the cervical vert ebrae. INDIVIDUAL LEVELS: C2-3: Normal disc height. No disc herniation or central canal stenosis. Right facet joints unremark able. There are moderate degenerative changes in the left facet joints. There is mild-moderate fora aylin stenosis on the left side. No foraminal stenosis on the right side. C3-4: Normal disc height. No significant disc herniation or central canal stenosis. There are moder ate degenerative changes in both facet joints at this level.There is moderate foraminal stenosis bila terally. C4-5: There is moderate disc space narrowing at this level and anterior osseous lipping. Posteriorly there is symmetrical annular bulging and mild effacement of the anterior thecal sac. No dominant di sc herniation. Mild central canal stenosis.There is significant degenerative changes in the facet keerthi ints are on the left side and milder facet arthropathy on the right side. Moderate bilateral foramin al stenosis evident. C5-6: There is advanced disc space narrowing at this level. Posteriorly there is annular bulging, sl ightly more so on the right side.. There is mild central canal stenosis. There are mild degenerativ e changes in the facet joints. There is moderate foraminal stenosis on the right side. Only mild fo raminal stenosis on the left side at this level. C6-7: Chronic disc space narrowing. Posteriorly there is symmetrical annular bulging which effaces t he anterior thecal sac with mild central canal stenosis. Facet joints appear unremarkable at this le devorah. There is no significant foraminal stenosis on either side at this level. C7-T1: No disc herniation nor central canal stenosis. Facet arthropathy.No foraminal stenosis. IMPRESSION: 1. Multilevel chronic degenerative disc disease. No dominant disc herniation but there is some annul ar bulging effacing the anterior thecal sac evident at C4-5, C5-6, and C6-7 levels. There is no prom inent central canal stenosis. 2. There is multilevel asymmetric facet arthropathy causing multilevel foraminal stenosis as describe d individually above. There is sparing of C6-7 level which exhibits no significant facet arthropathy at this level nor foraminal stenosis on either side at this level. 3. No evidence of myelitis signal in the cervical spinal cord and no evidence of focal cord swelling nor focal cord atrophy. DATA REPOSITORY:
== END ==
PROVIDERS: PCP Internal Medicine; Visit Provider Nurse Practitioner Adult Health
DX: M50.122 Cervical disc disorder at C5-C6 level with radiculopathy (principal)
CPT/HCPCS: 72141

== ENCOUNTER → 2024-04-16 12:16 | Outpatient (BNVA) | payer MEDICARE, BC, SELFPAY | PROVIDERS: PCP Family Medicine; Referring Provider Family Medicine; Visit Provider Psychiatry & Neurology Neurology | DX: M54.2 Cervicalgia (principal); M54.12 Radiculopathy, cervical region; R20.2 Paresthesia of skin | CPT/HCPCS: 99214 ==

== ENCOUNTER 2024-11-19 13:33 | Outpatient (REF) | payer MEDICARE, BC, SELFPAY ==
[2024-11-19 15:23] LABS: Abs Immature Grans 0.02 10^3/uL (0.0-0.06); Absolute Basophil Count 0.08 10^3/uL (0.0-0.2); Absolute Eosinophil Count 0.41 10^3/uL (0.0-0.7); Absolute Lymphocyte Count 1.24 10^3/uL (1.2-3.4); Absolute Monocyte Count 0.89 10^3/uL (0.1-0.8); Absolute Neutrophil Count 4.61 10^3/uL (1.2-6.7); Basophils % 1.1 %; Eosinophils % 5.7 %; HCT 45.5 % (40.0-50.0); HGB 14.7 g/dL (13.5-17.5); Immature Grans % 0.3 %; Lymphocytes % 17.1 %; MCH 29.8 pg (27.0-33.0); MCHC 32.3 % (32.0-36.0); MCV 92 fL (80-95); MPV 11.5 fL (8.0-11.0); Monocytes % 12.3 %; Neutrophils % 63.5 %; Platelet Count 184 10^3/uL (130-400); RBC 4.94 10^6/uL (4.36-5.78); RDW 13.6 % (11.8-14.1); RDW-SD 46.5 fL; WBC 7.25 10^3/uL (4.4-10.8)
[2024-11-19 15:36] LABS: ALT 26 U/L (16-63); AST 28 U/L (15-37); Alkaline Phosphatase 50 U/L (46-116); Anion Gap 10.8 mmol/L (3-11); BUN 18 mg/dL (7-18); CO2 27.2 mmol/L (21.0-32.0); Calcium 9.7 mg/dL (8.5-10.1); Chloride 104 mmol/L (98-107); Estimated GFR 79.47 (mL/min/1.73m2); Glucose 102 mg/dL (74-106); LDL CHOLESTEROL 92 mg/dL (<100); Potassium 4.8 mmol/L (3.5-5.1); Sodium 142 mmol/L (136-145); Total Protein 7.4 g/dL (6.4-8.2)
== END 2024-11-19 13:34 | disposition home or self-care (01) ==
LOC: NCHCN 13:33
PROVIDERS: PCP Family Medicine; Visit Provider Family Medicine
DX: I63.9 Cerebral infarction, unspecified (principal)
CPT/HCPCS: 80053; 83721; 85025

== ENCOUNTER 2025-02-25 15:34 | Outpatient (REF) | payer MEDICARE, BC, SELFPAY ==
[2025-02-25 21:38] LABS: Anion Gap 6.9 mmol/L (3-11); BUN 21 mg/dL (7-18); CO2 30.1 mmol/L (21.0-32.0); Calcium 9.9 mg/dL (8.5-10.1); Chloride 106 mmol/L (98-107); Estimated GFR 79.47 (mL/min/1.73m2); Glucose 104 mg/dL (74-106); Potassium 5.2 mmol/L (3.5-5.1); Sodium 143 mmol/L (136-145)
== END 2025-02-25 15:35 | disposition home or self-care (01) ==
LOC: NCHCN 15:34
PROVIDERS: PCP Family Medicine; Visit Provider Family Medicine
DX: I25.10 Atherosclerotic heart disease of native coronary artery without angina pectoris (principal)
CPT/HCPCS: 80048

== ENCOUNTER 2025-04-20 17:37 | Outpatient (REF) | payer MEDICARE, BC, SELFPAY ==
--- NOTE | 2025-04-20 09:30 | SKI_PTH ---
PATIENT: Quan Sharma LOC: [facility] U#:[id number] AGE/SX: 74/M ROOM: RE04/20/[address]: Franki Gaytan : 1950 BED: DIS: 04/20/2025 SPEC #: [id number] RECD: 04/20/25 17:53 STATUS: JOSEPHINE REQ #: [id number] MARCIAL: 04/20/25 09:[address]: Franki Gaytan DEPT: Surgical Specimen RECD BY: Arin Alvarez Tissues: 1 - SKIN BIOPSY(SHAVE/PUNCH) Procedures: SKIN LEVEL 4 Comments: [id number]
[2025-04-21 15:14] LABS: Lyme Ab w Rflx to Lyme Confirm Negative (Negative)
[2025-04-22 23:31] LABS: Anaplasma phagocytophilum Negative (Negative); B. miyamotoi PCR Negative (Negative); Babesia divergens/MO-1 Negative (Negative); Babesia duncani Negative (Negative); Babesia microti Negative (Negative); Ehrlichia chaffeensis Negative (Negative); Ehrlichia ewingii/canis Negative (Negative); Ehrlichia muris eauclairensis Negative (Negative)
== END 2025-04-20 17:38 | disposition home or self-care (01) ==
LOC: LBN 17:37
PROVIDERS: PCP Family Medicine; Visit Provider Family Medicine
DX: C44.719 Basal cell carcinoma of skin of left lower limb, including hip (principal); M79.18 Myalgia, other site
CPT/HCPCS: 87798; 86618; 88305

== ENCOUNTER 2025-05-14 14:17 | Outpatient (REF) | payer MEDICARE, BC, SELFPAY ==
--- NOTE | 2025-05-14 12:30 | SKI_PTH ---
PATIENT: Quan Sharma LOC: [facility] U#:[id number] AGE/SX: 74/M ROOM: RE05/14/[address]: Franki Gaytan : 1950 BED: DIS: 05/14/2025 SPEC #: [id number] RECD: 05/15/25 10:09 STATUS: JOSEPHINE REQ #: [id number] MARCIAL: 05/14/25 12:[address]: Franki Gaytan DEPT: Surgical Specimen RECD BY: Arin Alvarez Tissues: 1 - SKIN BIOPSY(SHAVE/PUNCH) Procedures: SKIN LEVEL 4 Comments: [id number]
== END 2025-05-14 14:18 | disposition home or self-care (01) ==
LOC: LBN 14:17
PROVIDERS: PCP Family Medicine; Visit Provider Family Medicine
DX: C44.91 Basal cell carcinoma of skin, unspecified (principal)
CPT/HCPCS: 88305

== ENCOUNTER 2025-05-20 02:37 | Outpatient (CLI) | payer MEDICARE, BC, SELFPAY ==
[2025-05-20 10:49] LABS: Anion Gap 7.0 mmol/L (3-11); BUN 21 mg/dL (7-18); CO2 29.0 mmol/L (21.0-32.0); Calcium 9.4 mg/dL (8.5-10.1); Chloride 104 mmol/L (98-107); Estimated GFR 93.45 (mL/min/1.73m2); Glucose 108 mg/dL (74-106); Potassium 4.2 mmol/L (3.5-5.1); Sodium 140 mmol/L (136-145)
== END 2025-05-20 02:38 | disposition home or self-care (01) ==
LOC: LBO 02:37
PROVIDERS: PCP Family Medicine; Visit Provider Internal Medicine Cardiovascular Disease
DX: I25.10 Atherosclerotic heart disease of native coronary artery without angina pectoris (principal)
CPT/HCPCS: 36415; 80048

== ENCOUNTER 2025-06-22 15:07 | Outpatient (REF) | payer MEDICARE, BC, SELFPAY ==
[2025-06-22 16:24] LABS: Uric Acid 6.6 mg/dL (3.5-7.2)
== END 2025-06-22 15:08 | disposition home or self-care (01) ==
LOC: NCHCN 15:07
PROVIDERS: PCP Family Medicine; Visit Provider Family Medicine
DX: N41.0 Acute prostatitis (principal)
CPT/HCPCS: 84550